=== PATIENT | male | born 1945 | race Caucasian/White ===

== ENCOUNTER 2017-08-22 10:49 | Day surgery (SDC) | payer MEDICARE, SELFPAY ==
[2017-08-22] VITALS (7 sets, daily range): BP systolic 100–135; BP diastolic 57–72; PULSE 74–89; RESP 18; TEMP 36.3–37.8; O2SAT 94–97; BMI 44.6
--- NOTE | 2017-08-22 | COLBX_PTH ---
PATIENT: VANDANA DE LEÓN LOC: EN U#:[id number] AGE/SX: 72/M ROOM: RE08/22/[address]: Dr. Honorio Lewis MD : 1945 BED: DIS: 08/22/2017 SPEC #: [id number] RECD: 08/22/17 15:15 STATUS: RENEA RANJITH #: [id number] RY: 08/22/17 00:[address]: Honorio Lewis DEPT: SURGICAL PATHOLOGY RECD BY: Boston Saldana ENTERED: 08/23/17 08:38 SP TYPE: COLON BX OTHR DR: Dr. Josafat Dallas MD Tissues: COLON BIOPSY Procedures: Surgery Specimen Level IV HEADER OPERATION: Colonoscopy (MAC) PRE-OP DIAGNOSIS: Screening TISSUE SUBMITTED: 35 cm hot biopsy MICROSCOPIC DIAGNOSIS Colon polyp at 35 cm, biopsy: Tubular adenoma with cautery artifacts. SJ:austin 08/24/17 MICROSCOPIC DESCRIPTION Slides are reviewed. GROSS DESCRIPTION Received in fixative is one container labeled with the patient's name and designated polyp biopsy at 35 cm. The specimen consists of one irregular fragment of light edge soft tissue that measures 0.3 x 0.2 x 0.1 cm. The specimen is totally submitted in one cassette. / SJ:austin 08/23/17 TC:1 CPT: 74775
--- NOTE | 2017-08-22 12:32 | HP.PCM_ITS ---
History and Physical Date of Admission: 08/22/17 HISTORY AND PHYSICAL ? Vladimir Robbins 1945 ? REFERRING PHYSICIAN: ~~Jonelle Fisher (Bret* ? CHIEF COMPLAINT: ~~colon consult ? HPI: The patient is a 72 year old male referred for endoscopy. ~Vladimir notes a personal history of colon polyps, most recently found on colonoscopy by Dr. Alec Durham on 03/07/12, those records are reviewed. ~He denies any change in bowel habits, weight changes, blood in stools, black tarry stools or abdominal pain. ~He denies a family history of colon cancer. ~The patient ~notes no history of upper GI complaints. ? The patient has an extensive past cardiac history including past NSTEMI and atrial fibrillation. ~He is maintained on warfarin. ~The patient required emergent repair of a ruptured abdominal aortic aneurysm in May 2016 and states he was told he had a small IA at the time of that surgery. ~More recently at the end of 2016 patient had an episode of chest pain and was hospitalized in [place] where he had negative troponins, states he also had a heart cath at that time which showed small blockage but nothing requiring intervention per patient. ~Patient follows with Dr. Valdovinos in cardiology. ~Last visit was 02/16/17, that note is reviewed. ~Next cardiac appt is 08/16/17. ~ ? Patient denies any chest pain, shortness of breath or other complaints currently. ~He denies problems with sedation in the past. ? ? PAST MEDICAL HISTORY PAST MEDICAL HISTORY Diagnosis Date ? AAA (abdominal aortic aneurysm, ruptured) (HCC) ? ? Atrial fibrillation (HCC) ? ? Hypercholesteremia ? ? Hypertension ? ? Sleep apnea ? ? ? PAST SURGICAL HISTORY PAST SURGICAL HISTORY Procedure Laterality Date ? CHOLECYSTECTOMY ? 06/07/2016 ? REPAIR RUPTURED AAA ENDOVASCULAR ? ~~~07/2013 ? S STENT AORTIC EXT [id number] ? CURRENT MEDICATIONS ? Current Outpatient Prescriptions: GAVILYTE-C 240-22.72-6.72 -5.84 gram solution TAKE 4,000 ML BY MOUTH ONE TIME ONLY FOR 1 DOSE. metoprolol succinate ER (TOPROL XL) 50 mg 24 hr tablet TAKE 1 TABLET TWICE DAILY [place] 160 mg capsule Take 160 mg by mouth twice daily. Unsure dose, takes 2 caps daily spironolactone (ALDACTONE) 25 mg tablet TAKE 1 TABLET EVERY DAY atorvastatin (LIPITOR) 80 mg tablet TAKE 1 TABLET EVERY DAY furosemide (LASIX) 40 mg tablet TAKE 1 TABLET EVERY DAY diltiazem (CARDIZEM) 120 mg tablet TAKE 1/2 TABLET TWICE DAILY warfarin (COUMADIN) 5 mg tablet 2.5 mg on Tuesday, 5mg all other days, or as directed. albuterol HFA (PROVENTIL HFA, VENTOLIN HFA) 90 mcg/actuation inhaler Inhale 2 Puffs as instructed every 4 hours as needed. acetaminophen (TYLENOL EXTRA STRENGTH) 500 mg tablet Take 2 tablets by mouth every 6 hours as needed for Pain. B Complex Vitamins capsule Take 1 capsule by mouth once daily. CALCIUM CARB/D3/MAGNESIUM/ZINC (CALCIUM CARB-D3-MAG OX-ZINC OX ORAL) Take ~by mouth once daily. CPAP Auto PAP @ 3-11 cm of water with humidification. Mask (medium ResMed Mirage Quattro full face mask without chin strap)-or patient preference, ~EPAP setting of 18 cmH2O, and auto-rate , ~filters, tubing, humidifier and lifetime supplies. aspirin 81 mg chewable tablet Take 81 mg by mouth twice daily. niacin 1,000 mg TbER Take 1 tablet by mouth twice daily. [place]-3 Fatty Acids (FISH OIL) 500 mg cap Take 2 capsules by mouth once daily. coenzyme Q10 (COQ-10) 100 mg cap Take 1 capsule by mouth once daily. ? No current facility-administered medications for this visit. ? ALLERGIES: Lisinopril ? PERSONAL HISTORY: SOCIAL HISTORY Social History ~~Marital status: ~~~~~~~~~~~~Spouse name: ~~~~~~~~~~~~~~~~~~ ~~Years of education: ~~~~~~~~~~~~~~~~Number of children: ~~~~~~~~~~ ? Social History Main Topics ~~Smoking status: Former Smoker ~~~~~~~~~~~~~~~~~~~~~~~~~~~~~~~~~~~~~~~~~~~~~~~~ ~~~~~~~~ ~~~~~Packs/day: 0.00 ~~~~~Years: 20.00 ~~ ~~~~~Types: Cigarettes, Pipe ~~Smokeless tobacco: Former User ~~~~~~~~~~~~~~~~~~ ~~~~~Types: Snuff ~~~~~Quit date: 09/06/1999 ~~Alcohol use: No ~~~~~~~~~ ~~Drug use: No ~~~~~~~~~ Social History Narrative ~~He worked as a Construction Job Cost Estimator, industrial plants and nursing homes. ? ? FAMILY HISTORY: FAMILY HISTORY FAMILY HISTORY Problem Relation Age of Onset ? Heart Mother ? ? Stroke Mother ? ? Cancer Father ? ? ? pancreatic ? Hypertension Brother ? ? Stroke Brother ? ? Hypertension Sister ? ? Heart Sister ? ? COPD Sister ? ? REVIEW OF SYMPTOMS: ~~The review of systems data was entered by the nurse and reviewed by me ? Nursing Notes: Corrie Pena LPN ~06/22/2017 ~9:08 AM ~Signed REVIEW OF SYSTEMS: ~~~~~General:~~~The patient NOTES fatigue, denies weight loss, denies weight gain, denies feeling hot, and denies feelings of cold. ~~~~~Eyes: ~The patient denies glaucoma, NOTES eye injury/surgery, wears glasses or contacts. ~~~~~Ear/Nose/Throat: ~The patient denies allergies, denies hayfever, denies ear infections, and denies bloody noses. ~~~~~Cardiovascular: ~The patient denies chest pain, denies heart disease, NOTES high blood pressure,denies cardiac stent, denies prior heart attack, NOTES irregular heart beat, NOTES high cholesterol, ~denies poor circulation, denies heart failure, other cardiac issues, denies claudication, denies cold feet, denies peripheral arterial stent. ~~~~~Respiratory: ~The patient denies tuberculosis, NOTES pneumonia, denies frequent cough, denies pulmonary embolism, denies shortness of breath, and denies coughing up blood. ~~~~~Gastrointestinal: ~The patient denies difficulty swallowing, denies acid reflux, denies ulcers, denies vomiting, denies jaundice/hepatitis, NOTES gallbladder problems, denies black or tarry stools, denies hemorrhoids, denies bleeding from rectum, denies diverticulitis, denies constipation, denies diarrhea, denies loss of stool control, and NOTES hernias. ~~~~~Kidney/Bladder: ~The patient NOTES kidney stones, denies urine infections, and denies bloody urine. ~~~~~Skin: ~The patient denies a history of skin cancer, denies bleeding/ changing moles, and denies a history of skin rash. ~~~~~Neurologic: ~The patient denies a history of epilepsy/convulsions, NOTES headaches, denies head/spinal injuries, and denies stroke/TIA. ~~~~~Psychiatric: ~The patient denies psychiatric medications, denies depression , and denies voices, denies substance abuse. ~~~~~Endocrine: ~The patient denies thyroid disorders, denies diabetes, and denies hormonal problems. ~~~~~Hematologic: ~The patient NOTES a history of bruising, denies bleeding, and denies anemia, denies blood clots. ~~~~~Infections: ~The patient NOTES a history of measles and mumps, denies rheumatic fever, and denies sexually transmitted diseases. ~~~~~Musculoskeletal: ~The patient denies back pain/injury, denies back problems , denies sciatica, denies knee/foot trouble, denies arthritis, or denies gout. ? ? When was patient's last Mammogram screening? N/A ? ~Last Colonoscopy: ~nONE ? Corrie Pena LPN~ Isis Anderson PA-C ? ~ PHYSICAL EXAMINATION: ? General: ~The patient is 72 year old male, well nourished, well hydrated in no acute distress. ~The patient is oriented to time, place, and person. ? VITALS: Blood pressure 118/66, pulse 80, height 180.3 cm (5' 11), weight (!) 146.5 kg (323 lb).~Body mass index is 45.05 kg/m?.~ ? HEENT: ~Normal cephalic, ataumatic, pupils are equally round, sclera are anicteric, mucous membranes are moist, oropharynx is clear. ~Neck has no masses , asymmetry or lymphadenopathy. ~ ? Respiratory: ~Clear to auscultation and percussion. ~Normal respiratory excursion and pattern. ? Cardiac: ~Examination is regular rate and rhythm. ? Abdominal exam: ~Soft, nontender, ~with no palpable masses. ~No hepatosplenomegaly. ~No palpable hernias. ? ? Extremities: ~no clubbing, cyanosis or edema. ~No adenopathy. ? Other: ? LABORATORY VALUES: As Noted ? RADIOLOGIC STUDIES: ~As Noted ? ? Assessment ~ IMPRESSION: encounter for screening colonoscopy, multiple medical comorbidities including history of IA in 2017 and history of emergent AAA repair ? PLAN: ~~We will plan for screening colonoscopy with Monitored Anesthetic Care. ~ We discussed the risks and benefits of the planned endoscopy. ~I have informed the patient that complications can occur including failure to complete the endoscopy and perforation. ~The patient had the opportunity to ask questions concerning the planned endoscopy. ~My staff has also explained the procedure to the patient in understandable terms and has given the patient printed material concerning the procedure. ~The patient freely consents to surgery. ? I plan to use golytely bowel preparation for endoscopy-patient already has Rx ? Patient instructed to REMAIN ON his warfarin for the procedure ? The patient has medical comorbidities for which I plan to perform the procedure under monitored anesthetic care. ? Diagnoses: (Z86.010) History of colonic polyps ~(primary encounter diagnosis) (Z98.890, ~Z86.79) S/P AAA repair (I25.2) History of IA (myocardial infarction) ? A letter was sent to Arsh Fisher PA-C~indicating the above finding for this patient. ~~ Return to Clinic: The patient is instructed to follow-up with me 1 week post operatively. ? ? Isis Anderson PA-C
--- NOTE | 2017-08-22 13:17 | PCM.OPRPT ---
Report of Operation Date of Procedure: 08/22/17 Pre-Operative Diagnosis: SCREENING COLONOSCOPY Post-Operative Diagnosis: SMALL POLYP AT 35CM, FEW DIVERTICULA Surgery/Procedure Performed:: COLONOSCOPY WITH BIOPSY FORCEPS POLYPECTOMY printing mechanist: None Type of Anesthesia:: MAC Anesthesiologist: Silvio Coppola - ASA3 Specimen's removed: SIGMOID POLYP Description of Procedure: The patient was brought to the endoscopy suite. Sign in was performed verifying patient, site, planned procedure, critical nursing information, the patient was monitored with cardiac, pulse oximetric, and blood pressure monitoring devices. Monitored anesthetic care was provided for sedation. Following IV sedation the patient was positioned for colonoscopy. A digital rectal exam was performed which revealed no palpable abnormalities The video colonoscope was inserted and advanced to the cecum as verified by the ileocecal valve, cecal base anatomic features and palpation. as the scope was withdrawn, the cecum, ascending colon, transverse colon, descending colon were all unremarkable. There were a few diverticula in sigmoid colon. A small polyp was seen in the distal sigmoid colon. This was removed with hot biopsy forceps polypectomy and sent to pathology. The remainder of the rectosigmoid was unremarkable. Scope was retroflexed and this was unremarkable. The patient tolerated the procedure well and was brought to recovery in stable condition
== END 2017-08-22 13:56 | disposition home or self-care (01) ==
LOC: EN 10:50 → AC 10:52
PROVIDERS: Family Provider Family Medicine; PCP Family Medicine; Visit Provider Surgery
PROC: 0DJD8ZZ Inspection of Lower Intestinal Tract, Via Natural or Artificial Opening Endoscopic (ICD-10-PCS; CPT 45378; principal; 2017-08-22 12:25)
DX: Z12.11 Encounter for screening for malignant neoplasm of colon (principal); K57.90 Diverticulosis of intestine, part unspecified, without perforation or abscess without bleeding; D12.6 Benign neoplasm of colon, unspecified; I25.2 Old myocardial infarction; I48.91 Unspecified atrial fibrillation; E78.00 Pure hypercholesterolemia, unspecified; I10 Essential (primary) hypertension; G47.30 Sleep apnea, unspecified; Z87.891 Personal history of nicotine dependence; Z86.79 Personal history of other diseases of the circulatory system; Z79.01 Long term (current) use of anticoagulants; Z86.010 Personal history of colon polyps
CPT/HCPCS: 45384; 88305; J7120

== ENCOUNTER → 2018-04-21 11:30 | Outpatient (CLI) | payer MEDICARE, SELFPAY ==
[2018-04-21 11:53] LABS: International Normalized Ratio 1.9; Prothrombin Time (Protime)PT. 21.5 SECONDS (11.7-14.9)
== END ==
PROVIDERS: Family Provider Family Medicine; PCP Family Medicine; Referring Provider Physician Assistant; Visit Provider Physician Assistant
DX: I48.91 Unspecified atrial fibrillation (principal)
CPT/HCPCS: 85610

== ENCOUNTER → 2018-08-29 | Outpatient (CLI) | payer MEDICARE, SELFPAY ==
[2017-08-22 11:16] VITALS: BMI 44.6
[2018-08-29 10:24] LABS: International Normalized Ratio 2.2; Prothrombin Time (Protime)PT. 24.3 SECONDS (11.7-14.9)
== END | disposition home or self-care (01) ==
PROVIDERS: Family Provider Family Medicine; PCP Family Medicine; Referring Provider Physician Assistant; Visit Provider Physician Assistant
DX: I48.91 Unspecified atrial fibrillation (principal)
CPT/HCPCS: 85610

== ENCOUNTER → 2020-03-25 07:23 | Outpatient (CLI) | payer MEDICARE, SELFPAY ==
[2017-08-22 11:16] VITALS: BMI 44.6
--- NOTE | 2020-03-24 13:30 | FLU_PTH ---
PATIENT: VANDANA DE LEÓN LOC: [facility]#:[id number] AGE/SX: 79/M ROOM: RE03/25/[address]: Dr. Josafat Dallas MD : 1945 BED: DIS: SPEC #: [id number] RECD: 03/24/20 16:53 STATUS: RENEA RANJITH #: [id number] RY: 03/24/20 13:[address]: Josafat Dallas DEPT: CYTOLOGY RECD BY: Ana Marcano Tissues: A - Thyroid gland, NOS B - Thyroid gland, NOS Procedures: Special Stain Group II Surgery Specimen Level IV Cytospin Fluid HEADER OPERATION: Ultrasound-guided fine needle aspiration left thyroid PRE-OP DIAGNOSIS: Thyroid nodules TISSUE SUBMITTED: A - FNA left thyroid fluid for cytology, B - FNA left thyroid slides x6 DIAGNOSIS CYTOLOGY A. Left thyroid nodule fluid for cytology, FNA (cytospin and cell block): Consistent with benign follicular nodule with cystic changes. B. Left thyroid nodule, ultrasound-guided FNA (smears): Consistent with benign follicular nodule with cystic changes. Adequate for evaluation. See comment. CHAR:austin 03/26/2020 COMMENT Correlation with clinical, radiologic findings and appropriate follow up are necessary. CYTOLOGY STUDY Slides are reviewed. CYTOLOGY GROSS A - Received is 30 ml of dark brown, cloudy fluid labeled with the patient's name and and designated per the requisition as left thyroid. Submitted for cytology preparation including cell block. B - Received are six smears labeled with the patient's name and designated per the requisition as left thyroid. Submitted for staining. / [place] 03/25/20 TC:5 CPT: 31774, 85878, 33545
== END ==
PROVIDERS: PCP Family Medicine; Referring Provider Family Medicine; Visit Provider Family Medicine
DX: E04.1 Nontoxic single thyroid nodule (principal)
CPT/HCPCS: 88108; 88305; 88313